=== PATIENT | male | born 1950 | race Caucasian/White ===

== ENCOUNTER → 2017-08-05 | Outpatient (CLI) | payer OTHER ==
[~2017-08-05] MED LIST: ASPIR 8181 MG PO; CARVEDILOL12.5 MG PO; PRILOSEC 20 MG20 MG PO; REMERON15 MG PO; VASOTEC20 MG PO; ZOCOR20 MG PO
[2017-08-05 08:07] LABS: CREATININE 1.4 mg/dL (0.7-1.3)
== END ==
LOC: CAT 07:29 → LABMALL 14:37
PROVIDERS: Internal Medicine
DX: K80.80 Other cholelithiasis without obstruction (principal)

== ENCOUNTER → 2018-05-22 | Outpatient (CLI) | payer OTHER ==
--- NOTE | ~2018-05-22 | 2DMMODE ---
[facility] [place] [address] 2 D/M-MODE ECHOCARDIOGRAM Name: CECILIA STALLWORTH Room #: REG [facility]#: [id number] Admission: 05/22/18 Attend Phys: Jordan Mike MD Discharge: Date of : 50 Date of Service: 05/22/18 1454 Report #: [id number] THIS REPORT FOR: //name// APPROVED REPORT Study performed: 05/22/2018 13:42:03 EXAM: Comprehensive 2D, Doppler, and color-flow Echocardiogram Patient Location: Out-Patient Room #: Echo lab 2 Status: routine BSA: 2.17 HR: 64 bpm BP: 138/80 mmHg Other Information Study Quality: Fair Indications CAD Hypertension/HDD 2D Dimensions IVC: 17.00 mm Volumes Left Atrial Volume (Systole) Single Plane 4CH: 40.55 mL Single Plane 2CH: 37.12 mL LA ESV Index: 19.00 mL/m2 Aortic Valve AoV Peak Tad.: 1.31 m/s AO Peak Gr.: 6.84 mmHg LVOT Max P.21 mmHg LVOT Max V: 1.34 m/s Mitral Valve E/A Ratio: 1.3 MV Decel. Time: 157.00 ms MV E Max Tad.: 0.99 m/s MV A Tad.: 0.78 m/s MV PHT: 45.53 ms Pulmonary Vein P Vein S: 0.62 m/s P Vein A: 0.30 m/s P Vein D: 0.61 m/s [facility] [address] [place] [address] 2 D/M-MODE ECHOCARDIOGRAM Name: CECILIA STALLWORTH Room #: REG CL Juliane#: [id number] Admission: 05/22/18 Attend Phys: Jordan Mike MD Discharge: Date of : 50 Date of Service: 05/22/18 1454 Report #: [id number] P Vein S/D Ratio: 1.02 Left Ventricle The left ventricle is normal size. There is normal LV segmental wall motion. There is normal left ventricular wall thickness. The left ventricular systolic function is normal. The left ventricular ejection fraction is within the normal range. LVEF is 60-65%. The left ventricular diastolic function is normal. Right Ventricle The right ventricle is normal size. The right ventricular systolic function is normal. Atria The left atrium size is normal. The right atrium size is normal. Aortic Valve The aortic valve is not well visualized. No aortic regurgitation is present. There is no aortic valvular stenosis. Mitral Valve The mitral valve is normal in structure. Mild mitral regurgitation. No evidence of mitral valve stenosis. Tricuspid Valve The tricuspid valve is normal in structure. There is no tricuspid valve regurgitation noted. Pulmonic Valve The pulmonary valve is normal in structure. There is no pulmonic valvular regurgitation. Great Vessels The aortic root is normal in size. IVC is normal in size and collapses >50% with inspiration. Pericardium There is no pericardial effusion. <Conclusion> The left ventricle is normal size. There is normal left ventricular wall thickness. The left ventricular systolic function is normal. The left ventricular diastolic function is normal. The right ventricle is normal size. [facility] [address] [place] [address] 2 D/M-MODE ECHOCARDIOGRAM Name: CECILIA STALLWORTH Room #: REG [facility]#: [id number] Admission: 05/22/18 Attend Phys: Jordan Mike MD Discharge: Date of : 50 Date of Service: 05/22/181453 Report #: [id number] The left atrium size is normal. The aortic valve is not well visualized. There is no aortic valvular stenosis. Mild mitral regurgitation. There is no tricuspid valve regurgitation noted. <ELECTRONICALLY SIGNED> By: Jordan Mike MD 05/22/184 53 53 Jordan Mike MD /INF
== END ==
LOC: CV 10:42
DX: I07.1 Rheumatic tricuspid insufficiency (principal); I25.10 Atherosclerotic heart disease of native coronary artery without angina pectoris; I10 Essential (primary) hypertension

== ENCOUNTER → 2021-02-09 | Outpatient (CLI) | payer OTHER | LOC: SJCVC 14:38 | PROVIDERS: ATTEND Internal Medicine Cardiovascular Disease | DX: R94.31 Abnormal electrocardiogram [ECG] [EKG] (principal); I49.1 Atrial premature depolarization; I25.812 Atherosclerosis of bypass graft of coronary artery of transplanted heart without angina pectoris; I10 Essential (primary) hypertension; E78.00 Pure hypercholesterolemia, unspecified; R60.9 Edema, unspecified; I82.401 Acute embolism and thrombosis of unspecified deep veins of right lower extremity; Z79.899 Other long term (current) drug therapy ==

== ENCOUNTER → 2021-02-13 | Outpatient (CLI) | payer OTHER | LOC: SJCVCIMAG 07:51 | PROVIDERS: ATTEND Internal Medicine Cardiovascular Disease | DX: I25.812 Atherosclerosis of bypass graft of coronary artery of transplanted heart without angina pectoris (principal); I10 Essential (primary) hypertension; E78.00 Pure hypercholesterolemia, unspecified; R60.9 Edema, unspecified; I82.401 Acute embolism and thrombosis of unspecified deep veins of right lower extremity; E78.5 Hyperlipidemia, unspecified; E66.9 Obesity, unspecified; Z79.899 Other long term (current) drug therapy; Z88.2 Allergy status to sulfonamides; Z88.1 Allergy status to other antibiotic agents; Z72.89 Other problems related to lifestyle ==

== ENCOUNTER → 2021-06-19 | Outpatient (CLI) | payer OTHER | LOC: SJCVC 12:58 | PROVIDERS: ATTEND Internal Medicine Cardiovascular Disease | DX: I10 Essential (primary) hypertension (principal); I25.812 Atherosclerosis of bypass graft of coronary artery of transplanted heart without angina pectoris; E78.00 Pure hypercholesterolemia, unspecified; R60.9 Edema, unspecified; Z88.2 Allergy status to sulfonamides; Z88.8 Allergy status to other drugs, medicaments and biological substances; Z79.899 Other long term (current) drug therapy; Z86.718 Personal history of other venous thrombosis and embolism ==

== ENCOUNTER → 2021-12-20 | Outpatient (CLI) | payer OTHER | LOC: SJCVCIMAG 12:57 | PROVIDERS: ATTEND Internal Medicine Cardiovascular Disease | DX: I25.10 Atherosclerotic heart disease of native coronary artery without angina pectoris (principal); I10 Essential (primary) hypertension; R60.9 Edema, unspecified; E78.00 Pure hypercholesterolemia, unspecified; Z88.1 Allergy status to other antibiotic agents; Z88.8 Allergy status to other drugs, medicaments and biological substances; Z79.899 Other long term (current) drug therapy; Z98.890 Other specified postprocedural states ==